=== PATIENT | female | born 1985 | race Caucasian/White ===

== ENCOUNTER 2017-02-06 10:14 | Emergency (ER) | payer SELFPAY ==
[2017-02-06] MEDS ORDERED: DiphenhydrAMINE 50 mg/ml Inj ONE (11:02)
[2017-02-06] MEDS ORDERED: Sodium Chloride 0.9% 500 ML IV ONE (11:03)
--- NOTE | 2017-02-06 11:05 | C.PDOC ---
History Of Present Illness Patient is a 31 year old female who presents to the ER with a complaint of dizziness for the past 3 days. Patient states it worsens with head movement. Patient also reports symptoms of nausea and photophobia. Patient notes she has never had this dizziness before. Denies headache, abdominal pain, numbness to extremities, tingling to extremities, or trauma. Time Seen by Provider: 02/06/17 10:29 Chief Complaint (Nursing): Dizziness/Lightheaded History Per: Patient History/Exam Limitations: no limitations Onset/Duration Of Symptoms: Days (3) Current Symptoms Are (Timing): Still Present Past Medical History Reviewed: Historical Data, Nursing Documentation, Vital Signs Vital Signs: Last Vital Signs Temp 98.2 F 02/06/17 13:31 Pulse 66 02/06/17 13:31 Resp 18 02/06/17 13:31 BP 100/64 02/06/17 13:31 Pulse Ox 100 02/06/17 13:31 - Medical History PMH: No Chronic Diseases Surgical History: No Surg Hx Family History: States: Unknown Family Hx - Social History Hx Tobacco Use: No Hx Alcohol Use: No Hx Substance Use: No - Immunization History Hx Tetanus Toxoid Vaccination: No Hx Influenza Vaccination: No Hx Pneumococcal Vaccination: No Review Of Systems Gastrointestinal: Positive for: Nausea. Negative for: Abdominal Pain Neurological: Positive for: Dizziness, Other (Photophobia. No tingling). Negative for: Numbness, Headache Physical Exam - Physical Exam Appears: Non-toxic Skin: Normal Color, Warm, Dry, No Rash Head: Atraumatic, Normacephalic Eye(s): bilateral: PERRL, EOMI, Other (Horizontal Nystagmus) Ear(s): Bilateral: Normal Oral Mucosa: Moist Throat: No Erythema, No Exudate Neck: Normal ROM, No Midline Cervical Tenderness, No Paracervical Tenderness, Supple Lymphatic: Normal Exam Chest: Symmetrical, No Tenderness Cardiovascular: Rhythm Regular, No Friction Rub, No Murmur Respiratory: Normal Breath Sounds, No Rales, No Rhonchi, No Wheezing Gastrointestinal/Abdominal: Soft, No Tenderness Back: Normal Inspection, No CVA Tenderness Extremity: Normal ROM, No Tenderness, No Swelling Neurological/Psych: Oriented x3, Normal Speech, Normal Cognition, Normal Motor, Normal Sensation Gait: Steady ED Course And Treatment - Laboratory Results Result Diagrams: 02/06/17 11:21 02/06/17 11:21 O2 Sat by Pulse Oximetry: 99 (Room air) Pulse Ox Interpretation: Normal Progress Note: Blood work ordered. Benadryl IVP, reglan IVP, and IV fluids will be administered. Medical Decision Making Medical Decision Making: On first re-exam, the patient reports mild improvement but still has some dizziness. Antivert ordered. On second re-exam, the patient reports improvement of symptoms. Lungs are CTA, heart is RRR, Abdomen is soft, non-tender and tolerating PO well. ambulatory in the ED with steady gait. Follow up with the medical doctor within 1-2 days. return if worsened. Disposition - Disposition Referrals: [facility] at [facility] [Outside] Disposition: HOME/ ROUTINE Disposition Time: 13:22 Condition: GOOD Additional Instructions: On re-exam, the patient reports improvement of symptoms. Lungs are CTA, heart is RRR, Abdomen is soft, non-tender and tolerating PO well. ambulatory in the ED with steady gait. Follow up with the medical doctor within 1-2 days. return if worsened. Prescriptions: Meclizine HCl [Motion Sickness Relief] 25 mg PO TID PRN #30 tablet PRN Reason: Dizziness Instructions: Vertigo (ED) - Clinical Impression Clinical Impression: Vertigo - Scribe Statement The provider has reviewed the documentation as recorded by the Scribe Lorenzo Sharma All medical record entries made by the Manuelibe were at my direction and personally dictated by me. I have reviewed the chart and agree that the record accurately reflects my personal performance of the history, physical exam, medical decision making, and the department course for this patient. I have also personally directed, reviewed, and agree with the discharge instructions and disposition.
[2017-02-06 11:06] LABS: RBC URINE 1 /hpf (0-3); URINE BILIRUBIN NEGATIVE (NEGATIVE); URINE BLOOD NEGATIVE (NEGATIVE); URINE COLOR Yellow (YELLOW); URINE GLUCOSE (UA) NORMAL (Normal); URINE KETONE NEGATIVE (NEGATIVE); URINE LEUKOCYTE ESTERASE TRACE Leu/uL (Negative); URINE PROTEIN NEGATIVE (NEGATIVE); URINE UROBILINOGEN NORMAL mg/dL (0.2-1.0); WBC URINE 1 /hpf (0-5)
[2017-02-06] MEDS ORDERED: DiphenhydrAMINE 50 mg/ml Inj IVP STA (11:06)
[2017-02-06] MEDS ORDERED: Sodium Chloride 0.9% 1,000 ML IV ONE (11:07)
[2017-02-06 11:28] LABS: BASO % 0.7 % (0.0-2.0); EOS # 0.2 K/uL (0.0-0.7); EOS % 4.5 % (0.0-4.0); HEMATOCRIT 41.4 % (34.0-47.0); LYMPH # 1.3 K/uL (1.0-4.3); LYMPH % 30.6 % (20.0-40.0); MEAN CELL VOLUME 82.9 fL (81.0-99.0); MEAN CORPUSCULAR HGB CONC 33.8 g/dL (33.0-37.0); MEAN PLATELET VOLUME 8.6 fL (7.2-11.7); MONO # 0.2 K/uL (0.0-0.8); MONO % 5.2 % (0.0-10.0); NRBC % 0.1 % (0.0-2.0); RED CELL DISTRIBUTION WIDTH 13.1 % (11.5-14.5); WHITE BLOOD COUNT 4.3 K/uL (4.8-10.8)
[2017-02-06 11:33] LABS: CHLORIDE 101 mmol/L (98-107); SODIUM 141 mmol/L (132-148)
[2017-02-06 11:34] LABS: POTASSIUM 4.1 mmol/L (3.6-5.2)
[2017-02-06 11:36] LABS: ALB/GLOB RATIO 1.5 (1.0-2.1); ALKALINE PHOSPHATASE 73 U/L (38-126); ALT/SGPT 44 U/L (9-52); AST/SGOT 53 U/L (14-36); BILIRUBIN,TOTAL 0.9 mg/dL (0.2-1.3); BLOOD UREA NITROGEN 12 mg/dL (7-17); CARBON DIOXIDE 27 mmol/L (22-30); GFR AFRICAN-AMERICAN > 60; GLUCOSE,RANDOM 102 mg/dL (65-105); TOTAL PROTEIN 7.8 g/dL (6.3-8.3)
[2017-02-06 11:37] LABS: CALCIUM 9.2 mg/dl (8.6-10.4)
[2017-02-06 13:34] VITALS: BP 100/64; PULSE 66; RESP 18; TEMP 98.2
[2017-02-06 18:15] VITALS: O2SAT 99
== END 2017-02-06 13:47 | disposition home or self-care (01) ==
LOC: C.ER 10:14
DX: R42 Dizziness and giddiness (principal)
CPT/HCPCS: 80053; 81001; 84703; 85025; 96361; 96374; 96375; 99285; J1200; J2765; J7040

== ENCOUNTER 2017-06-20 23:24 | Inpatient (IN) | payer MEDICAID, OTHER ==
[2017-06-21] MEDS ORDERED: Sodium Chloride 0.9% 1,000 ML IV ONE (00:03)
[2017-06-21] MEDS ORDERED: Sodium Chloride 0.9% 1,000 ML ONE (00:18)
[2017-06-21 00:22] LABS: BASO % 0.6 % (0.0-2.0); EOS # 0.1 K/uL (0.0-0.7); EOS % 1.4 % (0.0-4.0); HEMATOCRIT 37.1 % (34.0-47.0); LYMPH # 1.9 K/uL (1.0-4.3); LYMPH % 27.8 % (20.0-40.0); MEAN CELL VOLUME 83.2 fL (81.0-99.0); MEAN CORPUSCULAR HEMOGLOBIN 28.9 pg (27.0-31.0); MEAN CORPUSCULAR HGB CONC 34.7 g/dL (33.0-37.0); MEAN PLATELET VOLUME 7.9 fL (7.2-11.7); MONO # 0.5 K/uL (0.0-0.8); MONO % 7.9 % (0.0-10.0); RED CELL DISTRIBUTION WIDTH 13.4 % (11.5-14.5); WHITE BLOOD COUNT 6.7 K/uL (4.8-10.8)
--- NOTE | 2017-06-21 00:24 | C.PDOC ---
History Of Present Illness 31 y/o female presents to the ED with complaints of epigastric/RUQ pain associated with nausea. The pain began around 6:00am today and became stronger throughout the day; patient reports to have gone to [facility] and was told the pain was most likely gastritis. Blood work and urinalysis were performed and found to be negative, the patient was instructed to take pepcid and milk of magnesia but reports to have had no relief. She denies vomiting, diarrhea, fever, dysuria/hematuria, prior episodes of similar pain. Time Seen by Provider: 06/20/17 23:42 Chief Complaint (Nursing): Abdominal Pain History Per: Patient History/Exam Limitations: no limitations Onset/Duration Of Symptoms: Hrs (began at 6:00am. ) Current Symptoms Are (Timing): Still Present Severity: Moderate Location Of Pain/Discomfort: RUQ, Epigastric Quality Of Discomfort: Unable To Describe, "Pain" Associated Symptoms: Nausea. denies: Vomiting, Diarrhea Abnormal Vaginal Bleeding: No Past Medical History Reviewed: Historical Data, Nursing Documentation, Vital Signs Vital Signs: Last Vital Signs Temp 97.6 F 06/21/17 03:45 Pulse 75 06/21/17 03:45 Resp 20 06/21/17 03:45 BP 123/83 06/21/17 03:45 Pulse Ox 99 06/21/17 05:20 - Medical History PMH: No Chronic Diseases Surgical History: No Surg Hx Family History: States: No Known Family Hx - Social History Hx Tobacco Use: No Hx Alcohol Use: No Hx Substance Use: No - Immunization History Hx Tetanus Toxoid Vaccination: No Hx Influenza Vaccination: No Hx Pneumococcal Vaccination: No Review Of Systems Except As Marked, All Systems Reviewed And Found Negative. Constitutional: Negative for: Fever, Chills Cardiovascular: Negative for: Chest Pain Respiratory: Negative for: Shortness of Breath Gastrointestinal: Positive for: Nausea, Abdominal Pain. Negative for: Vomiting , Diarrhea Genitourinary: Negative for: Dysuria, Hematuria Physical Exam - Physical Exam Appears: Well, Non-toxic, Other (restless and uncomfortable; pacing around. ) Skin: Normal Color, Warm, Dry Head: Normacephalic Oral Mucosa: Moist Cardiovascular: Rhythm Regular Respiratory: Normal Breath Sounds, No Rales, No Rhonchi, No Wheezing Gastrointestinal/Abdominal: Bowel Sounds, Soft, Tenderness (epigastric region and RUQ TTP, (+) Meade's), No Guarding, No Rebound Back: Normal Inspection, No CVA Tenderness Neurological/Psych: Oriented x3 ED Course And Treatment - Laboratory Results Result Diagrams: 06/21/17 00:19 06/21/17 00:19 ECG: Interpreted By Me, Viewed By Me (NSR 70 BPM, normal axis, no acute ST/T wave changes) O2 Sat by Pulse Oximetry: 99 (Room air) Pulse Ox Interpretation: Normal - Radiology CXR: Interpreted by Me, Viewed By Me CXR Interpretation: Yes: No Acute Disease. No: Infiltrates - CT Scan/US RUQ US Other Rad Studies (CT/US): Read By Radiologist, Radiology Report Reviewed CT/US Interpretation: Name: AMOL SINGH Age: 31Years F Date: 06/21/2017. SSN: [id number] : 1985. Study: US ABDOMEN LTD Requesting Physician: NINO CAVAZOS. Images: 56. Addl Studies : Provided Clinical History: ruq, epigastric pain, r/o cholecytitis. CONFIDENTIALITY STATEMENT. This transmission is confidential and is intended to be a privileged communication. It is intended only for the use of the addressee. Access to this. message by anyone else is unauthorized. If you are not the intended recipient, any disclosure, copying, distribution or any action taken, or omitted to. be taken in reliance on it is prohibited and may be unlawful. If you received this communication in error, please notify us by telephone, so that return. of this document to us can be arranged. Page 1 of 1. EXAM: US Abdomen Limited, Right Upper Quadrant. CLINICAL HISTORY: 31 years old, female; Pain; Other: Ruq; Additional info: Ruq, epigastric pain, R/O cholecytitis. TECHNIQUE: Real-time ultrasound of the right upper quadrant with image documentation. COMPARISON: No relevant prior studies available. FINDINGS: Liver: Fatty infiltration. No mass. No intrahepatic ductal dilatation. Gallbladder: Gallstones. No wall thickening. Small pericholecystic fluid. Positive Meade's sign. Common bile duct: No dilatation. No stones. Pancreas: Unremarkable as visualized. Right kidney: Normal echogenicity. No hydronephrosis. IMPRESSION: 1. Findings concerning for acute cholecystitis. Clinical correlation is needed. Thank you for allowing us to participate in the care of your patient. Dictated and Authenticated by: Octavio He MD. 06/21/2017 2:34 AM Eastern Time ([place] & [place]) Progress Note: Blood work & US RUQ ordered and reviewed. Patient given IV Protonix and IV fluid. Copies of [facility] blood work and urinalysis reviewed and added to physical chart. 3:00AM - Spoke with operating room surgical technician, aware of acute cholecystitis for surgical admission under Dr. Maya. Reevaluation Time: 02:35 Reassessment Condition: Unchanged (Patient reassessed, is still having RUQ/ epigastric pain - IV morphine ordered.) - Physician Consult Information Physician Contacted: Zachary Maya Outcome Of Conversation: Spoke with Dr. Maya, agrees with admission for acute cholecystitis - pending eval by surgery resident (notified). Disposition - Disposition Disposition: HOSPITALIZED Disposition Time: 03:01 Condition: STABLE - Clinical Impression Clinical Impression: Acute cholecystitis - Scribe Statement The provider has reviewed the documentation as recorded by the Scribe Dana Bedoya All medical record entries made by the Scribe were at my direction and personally dictated by me. I have reviewed the chart and agree that the record accurately reflects my personal performance of the history, physical exam, medical decision making, and the department course for this patient. I have also personally directed, reviewed, and agree with the discharge instructions and disposition. Decision To Admit - Pt Status Changed To: Hospital Disposition Of: Inpatient - Admit Certification Admit to Inpatient:: After my assessment, the patient will require hospitalization for at least two midnights. This is because of the severity of symptoms shown, intensity of services needed, and/or the medical risk in this patient being treated as an outpatient. - InPatient: Physician Admission Certification:: see notes - . Bed Request Type: Regular Admitting Physician: Zachary Maya Patient Diagnosis: Acute cholecystitis
[2017-06-21 00:30] LABS: RBC URINE 3 /hpf (0-3); URINE BACTERIA RARE (<OCC); URINE BILIRUBIN NEGATIVE (NEGATIVE); URINE BLOOD NEGATIVE (NEGATIVE); URINE COLOR Yellow (YELLOW); URINE GLUCOSE (UA) NORMAL (Normal); URINE KETONE NEGATIVE (NEGATIVE); URINE LEUKOCYTE ESTERASE 3+ Leu/uL (Negative); URINE PROTEIN NEGATIVE (NEGATIVE); URINE UROBILINOGEN NORMAL mg/dL (0.2-1.0); WBC URINE 18 /hpf (0-5)
[2017-06-21 00:37] LABS: ALB/GLOB RATIO 1.4 (1.0-2.1); ALKALINE PHOSPHATASE 72 U/L (38-126); ALT/SGPT 27 U/L (9-52); AST/SGOT 17 U/L (14-36); BILIRUBIN,TOTAL 0.6 mg/dL (0.2-1.3); BLOOD UREA NITROGEN 12 mg/dL (7-17); CALCIUM 8.4 mg/dl (8.6-10.4); CARBON DIOXIDE 25 mmol/L (22-30); CHLORIDE 102 mmol/L (98-107); GFR AFRICAN-AMERICAN > 60; GLUCOSE,RANDOM 86 mg/dL (65-105); POTASSIUM 4.2 mmol/L (3.6-5.2); SODIUM 138 mmol/L (132-148); TOTAL PROTEIN 6.2 g/dL (6.3-8.3)
--- NOTE | 2017-06-21 02:34 | US ---
EXAM: US Abdomen Limited, Right Upper Quadrant CLINICAL HISTORY: 31 years old, female; Pain; Other: Ruq; Additional info: Ruq, epigastric pain, R/O cholecytitis TECHNIQUE: Real-time ultrasound of the right upper quadrant with image documentation. COMPARISON: No relevant prior studies available. FINDINGS: Liver: Fatty infiltration. No mass. No intrahepatic ductal dilatation. Gallbladder: Gallstones. No wall thickening. Small pericholecystic fluid. Positive Meade's sign. Common bile duct: No dilatation. No stones. Pancreas: Unremarkable as visualized. Right kidney: Normal echogenicity. No hydronephrosis. IMPRESSION: 1. Findings concerning for acute cholecystitis. Clinical correlation is needed.
[2017-06-21] MEDS ORDERED: Piperacillin/Tazobact 3.375 gm 100 ML IVPB STA (02:48)
[2017-06-21] MEDS ORDERED: Morphine 4 MG/ML VIAL ONE (02:56)
[2017-06-21] MEDS ORDERED: Piperacillin/Tazobact 3.375 gm 100 ML IVPB ONE (02:57)
[2017-06-21] MEDS: Piperacill/Tazo 3.375gm in Dex 3.375 GM/50 ML BAG IVPB SCH ×4 (03:10→22:09)
[2017-06-21] MEDS: Sodium Chloride 0.9% 1,000 ML IV SCH ×5 (03:56→22:09)
--- NOTE | 2017-06-21 07:01 | CP.PCM.HP ---
History of Present Illness - History of Present Illness History of Present Illness: Gen Sx; Dr Maya Pt is a 31F with no PMH who presented with sudden onset abdominal pain that started after dinner last night. PT reports pain is in the RUQ and radiates to the right shoulder. Pt supposedly went to [facility] with the pain and was discharged with dx of gastritis and no relief. Has had associated nausea, but denies f/c, sob, chest pain, or emesis. Has never had pain like this before. Work-up in ED showed significant amount of stones in gallbladder with pericholecystic fluid. 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 Pt agrees would like to have surgery today to remove gallbladder. PMH: none PSH: none Present on Admission - Present on Admission Any Indicators Present on Admission: No Review of Systems - Review of Systems All systems: reviewed and no additional remarkable complaints except (as per hpi ) Past Patient History - Infectious Disease Hx of Infectious Diseases: None - Past Medical History & Family History Past Medical History?: No - Past Social History Smoking Status: Never Smoked - MUSCULOSKELETAL/RHEUMATOLOGICAL Hx Falls: No - PSYCHIATRIC Hx Substance Use: No - SURGICAL HISTORY Hx Surgeries: Yes Hx Section: Yes (X2) - ANESTHESIA Hx Anesthesia: Yes Hx Anesthesia Reactions: No Hx Malignant Hyperthermia: No Meds Allergies/Adverse Reactions: Allergies Allergy/AdvReac Type Severity Reaction Status Date / Time No Known Allergies Allergy Verified 06/20/17 23:33 Physical Exam - Constitutional Appears: Non-toxic, No Acute Distress - Respiratory Exam Respiratory Exam: absent: Accessory Muscle Use, Respiratory Distress - Cardiovascular Exam Cardiovascular Exam: REGULAR RHYTHM - GI/Abdominal Exam GI & Abdominal Exam: Soft, Tenderness (RUQ). absent: Distended, Firm, Guarding , Hernia - Extremities Exam Extremities exam: Negative for: pedal edema - Neurological Exam Neurological exam: Alert, Oriented x3 - Psychiatric Exam Psychiatric exam: Normal Affect, Normal Mood - Skin Skin Exam: Normal Color, Warm Results - Vital Signs Recent Vital Signs: Last Vital Signs Temp 97.6 F 06/21/17 03:45 Pulse 75 06/21/17 03:45 Resp 20 06/21/17 03:45 BP 123/83 06/21/17 03:45 Pulse Ox 99 06/21/17 06:12 - Labs Result Diagrams: 06/21/17 00:19 06/21/17 00:19 Labs: Laboratory Results - last 24 hr 06/21/17 06/21/17 03:33 04:03 PT 11.2 INR 1.0 APTT 32 Blood Type A POSITIVE Antibody Screen Negative Assessment & Plan - Assessment and Plan (Free Text) Assessment: 31F with acute cholecystitis Plan: NPO IV fluids IV abx OR today for lap miki 830AM d/w Dr Francesco Gautam, PGY3
--- NOTE | 2017-06-21 07:49 | RAD ---
PROCEDURE: CHEST RADIOGRAPH, 1 VIEW HISTORY: preop COMPARISON: None available. FINDINGS: LUNGS: There is difficulty penetrating the chest due to body habitus however there is no definitive infiltrate identified bilaterally. PLEURA: No pneumothorax or pleural fluid seen. CARDIOVASCULAR: Normal. OSSEOUS STRUCTURES: No significant abnormalities. VISUALIZED UPPER ABDOMEN: Normal. OTHER FINDINGS: None. IMPRESSION: No definite acute cardiopulmonary disease.
[2017-06-21] MEDS ORDERED: Lactated Ringer's 1,000 ML IV ONE ×3 (08:12→10:00)
[2017-06-21] MEDS ORDERED: ceFAZolin IV 2 gm in Dextrose 0 GM/0 ML BAG IVPB ONE (08:25)
[2017-06-21] MEDS ORDERED: Succinylcholine Chloride 20 mg/ml Syr (5 ml) IV ONE (08:30)
[2017-06-21] MEDS ORDERED: Propofol 10 mg/ml Inj (20 ML) ONE (08:30)
[2017-06-21] MEDS ORDERED: Rocuronium 10 mg/ml (5 ml) ONE (08:30)
[2017-06-21] MEDS ORDERED: Midazolam 2 MG/2 ML VIAL ONE (08:30)
[2017-06-21] MEDS ORDERED: Lactated Ringer's 1,000 ML IV SCH ×2 (10:45→11:00)
--- NOTE | 2017-06-21 10:47 | PCM.SURG1 ---
Surgeon's Initial Post Op Note - Surgeon's Notes Surgeon: Dr. Maya Flatcar Whacker: Kenyon Shipley PGY2 Type of Anesthesia: General Endo Anesthesia Administered By: Dr. Braden Pre-Operative Diagnosis: acute cholecystitis Operative Findings: Distended adematous GB. Cholelithiasis Post-Operative Diagnosis: Acute cholecystitis Operation Performed: laparoscopic cholecystectomy Specimen/Specimens Removed: gallbladder Estimated Blood Loss: EBL {In ML}: 30 Blood Products Given: N/A Drains Used: No Drains Post-Op Condition: Good Date of Surgery/Procedure: 06/21/17 Time of Surgery/Procedure: 10:47
[2017-06-21] MEDS ORDERED: Oxycodone/Acetaminophen 5/325 mg Tab PO PRN (12:30)
--- NOTE | 2017-06-21 12:44 | OP ---
PROCEDURE DATE: 06/21/2017 SURGEON: Dr. Maya. INCIDENT RESPONSE LEAD: Dr. Shipley. TYPE OF ANESTHESIA: General. ANESTHESIA ADMINISTERED BY: Dr. Braden. PREOPERATIVE DIAGNOSIS: Acute cholecystitis. POSTOPERATIVE DIAGNOSIS: Acute cholecystitis. PROCEDURE: Laparoscopic cholecystectomy. DESCRIPTION OF OPERATION: With the patient in the supine position under adequate general anesthesia, the abdomen was prepped and draped in usual sterile manner. Veress needle puncture was performed at the umbilicus with insufflation to 15 cm water pressure of CO2 and a 10-mm laparoscopic trocar was inserted via an infraumbilical incision. Under direct vision, additional trocars were inserted in the epigastrium and right costal margin. The gallbladder was visualized, it was noted to be tensely distended and acutely inflamed. The gallbladder was aspirated of 50 mL of clear brown bile and then allowed the gallbladder fundus to be grasped and elevated. The adhesions of pyloric portion of the stomach and duodenum were gently taken down from the area overlying the infundibulum of the gallbladder and the infundibulum was grasped and retracted laterally. The cystic duct was identified and dissected, it was cleared down towards the junction with the common bile duct and then viewed anteriorly and posteriorly closer to the infundibulum of the gallbladder. The cystic duct was then triply clipped and divided. The cystic artery was similarly identified and dissected. The cystic artery was triply clipped and divided, and the gallbladder was dissected free of the liver bed using electrocautery. The gallbladder was partially intrahepatic and the liver bed was edematous, consistent with the acute cholecystitis. The liver bed was inspected for hemostasis and the dissection was completed. The gallbladder was placed in a specimen retrieval bag and removed via the umbilical port site; it was noted to contain multiple medium and large size stones. The right upper quadrant was irrigated and suctioned. The pneumoperitoneum was released and the trocars were removed. The umbilical port site was closed with a running fascial suture of 0 Vicryl. All incisions were closed with 4-0 Monocryl subcuticular sutures and Steri-Strips. Dry sterile dressings were applied. The patient tolerated the procedure well and transferred to recovery room in stable condition. Estimated blood loss for the procedure was 30 mL. Zachary Maya MD [facility] # [id number]
[2017-06-21 15:47] VITALS: RESP 20
[2017-06-22] MEDS: Piperacill/Tazo 3.375gm in Dex 3.375 GM/50 ML BAG IVPB SCH ×2 (02:26→10:25)
[2017-06-22] MEDS: Sodium Chloride 0.9% 1,000 ML IV SCH (06:08)
[2017-06-22 08:30] VITALS: BP 103/66; PULSE 83; TEMP 98.3; O2SAT 97
[2017-06-22] MEDS ORDERED: Morphine 4 MG/ML VIAL IVP PRN (09:45)
--- NOTE | 2017-06-22 11:02 | CP.PCM.DIS ---
Provider - Provider Date of Admission: 06/21/17 03:01 Attending physician: Zachary Maya MD Primary care physician: Non [facility] Provider Time Spent in preparation of Discharge (in minutes): 45 Hospital Course - Lab Results Lab Results: Most Recent Lab Values WBC 6.7 K/uL (4.8-10.8) D 06/21/17 00:19 RBC 4.46 Mil/uL (3.80-5.20) 06/21/17 00:19 Hgb 12.9 g/dL (11.0-16.0) 06/21/17 00:19 Hct 37.1 % (34.0-47.0) 06/21/17 00:19 MCV 83.2 fL (81.0-99.0) 06/21/17 00:19 MCH 28.9 pg (27.0-31.0) 06/21/17 00:19 MCHC 34.7 g/dL (33.0-37.0) 06/21/17 00:19 RDW 13.4 % (11.5-14.5) 06/21/17 00:19 Plt Count 206 K/uL (130-400) 06/21/17 00:19 MPV 7.9 fL (7.2-11.7) 06/21/17 00:19 Neut % (Auto) 62.3 % (50.0-75.0) 06/21/17 00:19 Lymph % (Auto) 27.8 % (20.0-40.0) 06/21/17 00:19 [place] % (Auto) 7.9 % (0.0-10.0) 06/21/17 00:19 Eos % (Auto) 1.4 % (0.0-4.0) 06/21/17 00:19 Baso % (Auto) 0.6 % (0.0-2.0) 06/21/17 00:19 Neut # 4.2 K/uL (1.8-7.0) 06/21/17 00:19 Lymph # 1.9 K/uL (1.0-4.3) 06/21/17 00:19 [place] # 0.5 K/uL (0.0-0.8) 06/21/17 00:19 Eos # 0.1 K/uL (0.0-0.7) 06/21/17 00:19 Baso # 0.0 K/uL (0.0-0.2) 06/21/17 00:19 PT 11.2 SECONDS (9.7-12.2) 06/21/17 03:33 INR 1.0 06/21/17 03:33 APTT 32 SECONDS (21-34) 06/21/17 03:33 Sodium 138 mmol/L (132-148) 06/21/17 00:19 Potassium 4.2 mmol/L (3.6-5.2) 06/21/17 00:19 Chloride 102 mmol/L (98-107) 06/21/17 00:19 Carbon Dioxide 25 mmol/L (22-30) 06/21/17 00:19 Anion Gap 15 (10-20) 06/21/17 00:19 BUN 12 mg/dL (7-17) 06/21/17 00:19 Creatinine 0.5 MG/DL (0.7-1.2) L 06/21/17 00:19 Est GFR ( Amer) > 60 06/21/17 00:19 Est GFR (Non-Af Amer) > 60 06/21/17 00:19 Random Glucose 86 mg/dL (65-105) 06/21/17 00:19 Calcium 8.4 mg/dl (8.6-10.4) L 06/21/17 00:19 Total Bilirubin 0.6 mg/dL (0.2-1.3) 06/21/17 00:19 AST 17 U/L (14-36) 06/21/17 00:19 ALT 27 U/L (9-52) 06/21/17 00:19 Alkaline Phosphatase 72 U/L (38-126) 06/21/17 00:19 Total Protein 6.2 g/dL (6.3-8.3) L 06/21/17 00:19 Albumin 3.6 g/dL (3.5-5.0) 06/21/17 00:19 Globulin 2.6 gm/dL (2.2-3.9) 06/21/17 00:19 Albumin/Globulin Ratio 1.4 (1.0-2.1) 06/21/17 00:19 Lipase 59 U/L (23-300) 06/21/17 00:19 Urine Color Yellow (YELLOW) 06/21/17 00:15 Urine Clarity Hazy (Clear) 06/21/17 00:15 Urine pH 5.0 (5.0-8.0) 06/21/17 00:15 Ur Specific [place] 1.024 (1.003-1.030) 06/21/17 00:15 Urine Protein Negative mg/dL (NEGATIVE) 06/21/17 00:15 Urine Glucose (UA) Normal mg/dL (Normal) 06/21/17 00:15 Urine Ketones Negative mg/dL (NEGATIVE) 06/21/17 00:15 Urine Blood Negative (NEGATIVE) 06/21/17 00:15 Urine Nitrate Negative (NEGATIVE) 06/21/17 00:15 Urine Bilirubin Negative (NEGATIVE) 06/21/17 00:15 Urine Urobilinogen Normal mg/dL (0.2-1.0) 06/21/17 00:15 Ur Leukocyte Esterase 3+ Ruby/uL (Negative) H 06/21/17 00:15 Urine WBC (Auto) 18 /hpf (0-5) H 06/21/17 00:15 Urine RBC (Auto) 3 /hpf (0-3) 06/21/17 00:15 Ur Squamous Epith Cells 20 /hpf (0-5) H 06/21/17 00:15 Urine Bacteria Rare (<OCC) 06/21/17 00:15 Urine HCG, Qual Negative (NEGATIVE) 06/21/17 00:15 Blood Type A POSITIVE 06/21/17 04:03 Antibody Screen Negative 06/21/17 04:03 - Hospital Course Hospital Course: Patient is a 31 year old female with no past medical history who originally presented to the ED for nausea, epigastric, and right upper quadrant abdominal pain. Patient was found to have acute cholecystitis. On abdominal ultrasound, positive han's sign, gallstones and pericholecystic fluid was shown. Patient underwent laproscopic cholecystectomy on 06/21/17. Patient is out of bed, ambulating and tolerating diet well. Patient is encouraged to continue using incentive spirometer. Patient is stable for discharge to home as per Dr. Maya. Patient must follow up with Dr. Maya within one week of discharge. Discharge Exam - Head Exam Head Exam: ATRAUMATIC, NORMAL INSPECTION - Eye Exam Eye Exam: EOMI, Normal appearance - ENT Exam ENT Exam: Mucous Membranes Moist - Respiratory Exam Respiratory Exam: Decreased Breath Sounds. absent: Rales, Rhonchi, Wheezes, Respiratory Distress - Cardiovascular Exam Cardiovascular Exam: +S1, +S2 - GI/Abdominal Exam GI & Abdominal Exam: Soft, Tenderness (post-op). absent: Distended - Neurological Exam Neurological exam: Alert, Oriented x3 - Psychiatric Exam Psychiatric exam: Normal Affect, Normal Mood - Skin Skin Exam: Dry, Intact, Normal Color, Warm Discharge Plan - Follow Up Plan Condition: STABLE Disposition: HOME/ ROUTINE Instructions: Cholecystitis (DC), Cholecystitis (GEN) Additional Instructions: Patient is stable for discharge to home as per Dr. Maya. Patient should continue home medications. Patient must follow up with Dr. Maya within one week of discharge. These instructions have been discussed with and understood by the patient. If patient has any concerns, patient should return to the ED. Referrals: Non [facility] Provider, [Primary Care Provider] -
[2017-06-24] MEDS ORDERED: Pneumococcal 23-Valent Vaccine IM ONE (10:00)
--- NOTE | 2017-06-24 18:58 | CARD ---
APPROVED REPORT EKG Measurement Heart [id number] IN [id number] [id number] <Conclusion> Normal sinus rhythm Normal Electrocardiogram
== END 2017-06-22 14:00 | disposition home or self-care (01) | DRG 419 ==
LOC: SUPCPDRO 23:24 → C.ER 23:24 → C.3T 06-21 03:01 → C.9E 06-21 03:16 → C.6T 06-21 03:19
PROVIDERS: ADMIT Specialist; ATTEND Specialist
PROC: 0FT44ZZ Resection of Gallbladder, Percutaneous Endoscopic Approach (ICD-10-PCS; principal; 2017-06-21 08:30)
DX: K80.12 Calculus of gallbladder with acute and chronic cholecystitis without obstruction (principal)